=== PATIENT | male | born 1990 | race African-American/Black ===

== ENCOUNTER 2016-06-01 13:21 | Emergency (ER) | payer SELFPAY ==
[~2016-06-01] VITALS: Ht 190.5 cm; Wt 90.9 kg
[2016-06-01] MEDS ORDERED: MINERA CRM, 60GM TP ONE (14:00)
[2016-06-01 15:17] VITALS: BP 130/80
== END 2016-06-01 15:24 | disposition home or self-care (01) ==
LOC: ED 15:17
DX: L20.9 Atopic dermatitis, unspecified (principal); L30.9 Dermatitis, unspecified
CPT/HCPCS: 99283; J7512